=== PATIENT | male | born 1960 | race African-American/Black ===

== ENCOUNTER 2016-08-23 14:28 | Inpatient (IN) | payer MEDICAID ==
[~2016-08-23] VITALS: Ht 172.7 cm; Wt 111.6 kg
[2016-08-23 16:39] VITALS: BP 129/71
[2016-08-23] MEDS ORDERED: IBUPROFEN 600 MG TABLET PO PRN (18:45)
[2016-08-23] MEDS ORDERED: ALBUTEROL SULFATE HFA 90 MCG/PUFF 8 GM INHALER IH PRN (18:45)
[2016-08-23] MEDS ORDERED: ACETAMINOPHEN 325 MG TABLET PO PRN (18:45)
[2016-08-24 07:10] VITALS: BP 123/76
[2016-08-24 09:27] VITALS: BP 116/66
[2016-08-24] MEDS: LORazepam 2 MG TABLET PO PRN (14:19)
[2016-08-24 17:58] VITALS: BP 108/65
[2016-08-24] MEDS ORDERED: OLANZapine 5 MG TABLET PO SCH (21:00)
[2016-08-25 00:14] VITALS: BP 107/68
[2016-08-25] MEDS: ASPIRIN 81 MG EC TABLET PO SCH (06:13)
[2016-08-25] MEDS ORDERED: FLUoxetine HCL 20 MG CAPSULE PO SCH (09:00)
[2016-08-25 09:04] LABS: BASOPHILS # (AUTO) 0.03 K/uL (0.00-0.20); BASOPHILS % (AUTO) 0.5 % (0.0-2.0); EOSINOPHILS # (AUTO) 0.17 K/uL (0.00-0.70); EOSINOPHILS % (AUTO) 3.11 % (1.0-6.0); HEMATOCRIT 42.8 % (41-53); HEMOGLOBIN 14.2 g/dL (13.5-17.5); MEAN CORPUSCULAR HGB CONC 33.2 G/dL (31.0-37.0); MEAN CORPUSCULAR VOLUME 87 fL (80-100); MONOCYTES # (AUTO) 0.5 K/uL (0.1-1.0); MONOCYTES % (AUTO) 8.7 % (2.0-9.0); NEUTROPHILS # (AUTO) 2.8 K/uL (1.8-7.7); NEUTROPHILS % (AUTO) 50.7 % (40.0-70.0); PLATELET COUNT (AUTO) 223 K/uL (150-450); RED BLOOD CELL COUNT(AUTO) 4.89 MIL/uL (4.50-5.90); RED CELL DISTRIBUTION WIDTH 14.5 % (11.5-14.5); WHITE BLOOD COUNT (AUTO) 5.5 K/uL (4.5-11.0)
[2016-08-25 09:17] VITALS: BP 134/66
[2016-08-25 09:23] LABS: ALANINE AMINOTRANSFERASE 30 U/L (12-78); ANION GAP 8 mmol/L (8-16); ASPARTATE AMINOTRANSFERASE 14 U/L (15-37); BILIRUBIN,TOTAL 0.2 mg/dL (0.1-1.0); CALCIUM, TOTAL 7.7 mg/dL (8.8-10.5); CARBON DIOXIDE 25 mmol/L (22-29); CHLORIDE 106 mmol/L (98-107); CHOL/HDL RATIO 4.8 (4.2-7.3); CREATININE 0.86 mg/dL (0.60-1.30); GLOMERULAR FILTR. RATE CALC > 60 mL/min (>60); HEMOGLOBIN A1C 6.3 % (4.5-6.2); POTASSIUM 4.1 mmol/L (3.5-5.1); SODIUM SERUM 139 mmol/L (136-145); THYROID STIMULATING HORMONE 1.17 uIU/mL (0.36-3.74); TOTAL PROTEIN, SERUM 6.2 g/dL (6.4-8.2); UREA NITROGEN, BLOOD 16 mg/dL (7-18)
[2016-08-25 16:00] VITALS: BP 128/80
[2016-08-25] MEDS: LORazepam 2 MG TABLET PO PRN (17:23)
[2016-08-25] MEDS: OLANZapine 5 MG TABLET PO SCH (21:44)
[2016-08-26] MEDS: ASPIRIN 81 MG EC TABLET PO SCH (06:26)
[2016-08-26 07:20] VITALS: BP 114/70
[2016-08-26] MEDS: FLUoxetine HCL 20 MG CAPSULE PO SCH (09:00)
[2016-08-26 12:27] VITALS: BP 123/60
[2016-08-26 16:00] VITALS: BP 130/74
[2016-08-26] MEDS: OLANZapine 5 MG TABLET PO SCH (20:20)
[2016-08-27 03:35] VITALS: BP 120/80
[2016-08-27] MEDS: ASPIRIN 81 MG EC TABLET PO SCH (06:42)
[2016-08-27] MEDS: FLUoxetine HCL 20 MG CAPSULE PO SCH (08:08)
[2016-08-27 08:16] VITALS: BP 130/74
[2016-08-27 16:00] VITALS: BP 126/82
[2016-08-27] MEDS: OLANZapine 5 MG TABLET PO SCH (20:14)
[2016-08-28 04:48] VITALS: BP 112/70
[2016-08-28 06:20] VITALS: BP 115/73
[2016-08-28] MEDS: ASPIRIN 81 MG EC TABLET PO SCH (06:28)
[2016-08-28 08:18] VITALS: BP 120/76
[2016-08-28] MEDS: FLUoxetine HCL 20 MG CAPSULE PO SCH (08:47)
[2016-08-28 16:00] VITALS: BP 124/78
[2016-08-28] MEDS: LORazepam 2 MG TABLET PO PRN (18:43)
[2016-08-28] MEDS: OLANZapine 5 MG TABLET PO SCH (20:18)
[2016-08-29 00:01] VITALS: BP 122/68
[2016-08-29] MEDS: ASPIRIN 81 MG EC TABLET PO SCH (06:58)
[2016-08-29 08:24] VITALS: BP 121/81
[2016-08-29] MEDS: FLUoxetine HCL 20 MG CAPSULE PO SCH (09:09)
[2016-08-29 16:00] VITALS: BP 117/76
[2016-08-29] MEDS: OLANZapine 5 MG TABLET PO SCH (21:00)
[2016-08-30 03:32] VITALS: BP 102/60
[2016-08-30] MEDS: ASPIRIN 81 MG EC TABLET PO SCH (06:54)
[2016-08-30] MEDS: FLUoxetine HCL 20 MG CAPSULE PO SCH (08:04)
[2016-08-30] MEDS: OLANZapine 5 MG TABLET PO SCH ×2 (11:15→20:38)
[2016-08-30 14:45] VITALS: BP 129/68
[2016-08-30 16:15] VITALS: BP 118/84
[2016-08-31 06:16] VITALS: BP 127/77
[2016-08-31] MEDS: ASPIRIN 81 MG EC TABLET PO SCH (06:50)
[2016-08-31] MEDS: OLANZapine 5 MG TABLET PO SCH ×2 (08:13→20:05)
[2016-08-31] MEDS: FLUoxetine HCL 20 MG CAPSULE PO SCH (08:13)
[2016-08-31 08:36] VITALS: BP 133/68
[2016-08-31 16:08] VITALS: BP 110/62
[2016-08-31] MEDS: LORazepam 2 MG TABLET PO PRN (19:11)
[2016-09-01 00:32] VITALS: BP 122/72
[2016-09-01] MEDS: ASPIRIN 81 MG EC TABLET PO SCH (06:28)
[2016-09-01] MEDS: FLUoxetine HCL 20 MG CAPSULE PO SCH (08:09)
[2016-09-01 08:21] VITALS: BP 124/69
[2016-09-01] MEDS: LORazepam 2 MG TABLET PO PRN (09:42)
[2016-09-01] MEDS: OLANZapine 10 MG TABLET PO SCH (12:15)
[2016-09-01 16:17] VITALS: BP 131/95
[2016-09-01] MEDS: OLANZapine 5 MG TABLET PO SCH (20:13)
[2016-09-02] MEDS: LORazepam 2 MG TABLET PO PRN ×2 (00:05→18:43)
[2016-09-02 00:06] VITALS: BP 119/89
[2016-09-02] MEDS: ASPIRIN 81 MG EC TABLET PO SCH (06:14)
[2016-09-02] MEDS: FLUoxetine HCL 20 MG CAPSULE PO SCH (08:36)
[2016-09-02] MEDS: OLANZapine 10 MG TABLET PO SCH (08:37)
[2016-09-02 09:11] VITALS: BP 126/71
[2016-09-02 16:16] VITALS: BP 111/78
[2016-09-02] MEDS: OLANZapine 5 MG TABLET PO SCH (20:55)
[2016-09-03 00:01] VITALS: BP 104/60
[2016-09-03] MEDS: ASPIRIN 81 MG EC TABLET PO SCH (06:24)
[2016-09-03] MEDS: OLANZapine 10 MG TABLET PO SCH (08:24)
[2016-09-03] MEDS: FLUoxetine HCL 20 MG CAPSULE PO SCH (08:24)
[2016-09-03 08:41] VITALS: BP 121/77
[2016-09-03] MEDS: PANTOPRAZOLE SODIUM 40 MG DR TABLET PO SCH (10:24)
[2016-09-03] MEDS: LORazepam 2 MG TABLET PO PRN (14:37)
[2016-09-03 16:17] VITALS: BP 117/65
[2016-09-03] MEDS: OLANZapine 5 MG TABLET PO SCH (20:40)
[2016-09-04 00:15] VITALS: BP 100/63
[2016-09-04] MEDS: ASPIRIN 81 MG EC TABLET PO SCH (06:37)
[2016-09-04 08:34] VITALS: BP 118/68
[2016-09-04] MEDS: OLANZapine 10 MG TABLET PO SCH (09:55)
[2016-09-04] MEDS: FLUoxetine HCL 20 MG CAPSULE PO SCH (09:55)
[2016-09-04] MEDS: PANTOPRAZOLE SODIUM 40 MG DR TABLET PO SCH (09:55)
[2016-09-04 16:00] VITALS: BP 119/76
[2016-09-04] MEDS: LORazepam 2 MG TABLET PO PRN (17:11)
[2016-09-04] MEDS: OLANZapine 5 MG TABLET PO SCH (20:47)
[2016-09-04] MEDS: ZOLPIDEM TARTRATE 10 MG TABLET PO PRN (20:47)
[2016-09-04] MEDS ORDERED: ALBUTEROL SULFATE HFA 90 MCG/PUFF 8 GM INHALER IH PRN (22:00)
[2016-09-04] MEDS ORDERED: DiphenhydrAMINE HCL 25 MG CAPSULE PO PRN (22:00)
[2016-09-05 02:47] VITALS: BP 125/90
[2016-09-05] MEDS: ASPIRIN 81 MG EC TABLET PO SCH (06:36)
[2016-09-05 08:42] VITALS: BP 120/80
[2016-09-05] MEDS: PredniSONE 20 MG TABLET PO SCH (09:05)
[2016-09-05] MEDS: PANTOPRAZOLE SODIUM 40 MG DR TABLET PO SCH (09:05)
[2016-09-05] MEDS: OLANZapine 10 MG TABLET PO SCH (09:06)
[2016-09-05] MEDS: FLUoxetine HCL 20 MG CAPSULE PO SCH (09:06)
[2016-09-05] MEDS: LORazepam 2 MG TABLET PO PRN ×2 (11:10→17:09)
[2016-09-05] MEDS ORDERED: HALOPERIDOL 10 MG TABLET PO PRN (16:30)
[2016-09-05] MEDS ORDERED: HALOPERIDOL 5 MG TABLET PO PRN (16:30)
[2016-09-05 16:33] VITALS: BP 140/82
[2016-09-05] MEDS: ZOLPIDEM TARTRATE 10 MG TABLET PO PRN (20:22)
[2016-09-05] MEDS ORDERED: OLANZapine 10 MG TABLET PO SCH (21:00)
[2016-09-06 03:55] VITALS: BP 135/81
[2016-09-06] MEDS: ASPIRIN 81 MG EC TABLET PO SCH (06:28)
[2016-09-06 08:24] VITALS: BP 104/66
[2016-09-06] MEDS: PredniSONE 20 MG TABLET PO SCH (08:55)
[2016-09-06] MEDS: FLUoxetine HCL 20 MG CAPSULE PO SCH (08:55)
[2016-09-06] MEDS: OLANZapine 10 MG TABLET PO SCH (08:55)
[2016-09-06] MEDS: PANTOPRAZOLE SODIUM 40 MG DR TABLET PO SCH (08:55)
[2016-09-06] MEDS ORDERED: OLAN10TA3 PO (12:46)
[2016-09-06] MEDS ORDERED: FLUO-191 PO (12:46)
[2016-09-06] MEDS ORDERED: PANT40TA25 PO (12:48)
[2016-09-06] MEDS ORDERED: PRED20 PO (12:48)
[2016-09-06] MEDS ORDERED: ASPI-1093 PO (12:48)
== END 2016-09-06 13:15 | disposition home or self-care (01) | DRG 750 ==
LOC: B2S 16:11 → EDSTATUS 16:20 → B2S 08-25 11:57
PROVIDERS: ADMIT Psychiatry & Neurology Psychiatry; ATTEND Psychiatry & Neurology Psychiatry
DX: F25.0 Schizoaffective disorder, bipolar type (principal); R45.851 Suicidal ideations; F60.3 Borderline personality disorder; M54.2 Cervicalgia; J45.909 Unspecified asthma, uncomplicated; Z72.0 Tobacco use; Z86.73 Personal history of transient ischemic attack (TIA), and cerebral infarction without residual deficits
CPT/HCPCS: 83036; 84439; 84443; J3535

== ENCOUNTER 2017-04-21 14:56 | Emergency (ER) | payer MEDICAID, OTHER ==
[~2017-04-21] VITALS: Ht 175.3 cm; Wt 95.5 kg
[~2017-04-21 14:56] MED LIST: ASPI-1182 PO; FLUO-191 PO; OLAN10TA3 PO; PANT40TA25 PO; PRED20 PO
[2017-04-21] MEDS ORDERED: QUET100T PO (15:05)
[2017-04-21 16:36] LABS: BASOPHILS % (AUTO) 1.3 % (0.0-2.0); EOSINOPHILS % (AUTO) 3.1 % (1.0-6.0); HEMOGLOBIN 17.2 g/dL (13.5-17.5); LYMPHOCYTES # (AUTO) 2.4 K/uL (1.0-4.8); LYMPHOCYTES % (AUTO) 35.6 % (22.0-44.0); MEAN CORPUSCULAR HEMOGLOBIN 29.5 pg (26.0-34.0); MEAN CORPUSCULAR HGB CONC 33.7 G/dL (31.0-37.0); MEAN CORPUSCULAR VOLUME 87 fL (80-100); MONOCYTES # (AUTO) 1.1 K/uL (0.1-1.0); MONOCYTES % (AUTO) 16.5 % (2.0-9.0); NEUTROPHILS # (AUTO) 2.9 K/uL (1.8-7.7); NEUTROPHILS % (AUTO) 43.5 % (40.0-70.0); PLATELET COUNT (AUTO) 281 K/uL (150-450); RED BLOOD CELL COUNT(AUTO) 5.84 MIL/uL (4.50-5.90); RED CELL DISTRIBUTION WIDTH 14.5 % (11.5-14.5)
[2017-04-21 16:50] LABS: ANION GAP 7 mmol/L (8-16); CALCIUM, TOTAL 9.3 mg/dL (8.8-10.5); CARBON DIOXIDE 30 mmol/L (22-29); CHLORIDE 98 mmol/L (98-107); CREATININE 1.03 mg/dL (0.60-1.30); GLOMERULAR FILTR. RATE CALC > 60 mL/min (>60); GLUCOSE,RANDOM 124 mg/dL (70-110); POTASSIUM 3.2 mmol/L (3.5-5.1); SODIUM SERUM 135 mmol/L (136-145); UREA NITROGEN, BLOOD 13 mg/dL (7-18)
[2017-04-21 16:57] LABS: ALANINE AMINOTRANSFERASE 61 U/L (12-78); ALBUMIN 3.5 g/dL (3.4-5.0); ALKALINE PHOSPHATASE 80 U/L (46-116); ASPARTATE AMINOTRANSFERASE 33 U/L (15-37); BILIRUBIN,TOTAL 0.2 mg/dL (0.1-1.0); TOTAL PROTEIN, SERUM 7.5 g/dL (6.4-8.2)
[2017-04-21 17:12] LABS: AMPHET/METH SCREEN,URINE NEGATIVE (NEGATIVE); BARBITURATE SCREEN, URINE NEGATIVE (NEGATIVE); BENZODIAZEPINES SCREEN,URINE NEGATIVE (NEGATIVE); CANNABINOID SCREEN,URINE NEGATIVE (NEGATIVE); COCAINE SCREEN,URINE NEGATIVE (NEGATIVE); METHADONE SCREEN, URINE NEGATIVE (NEGATIVE); OPIATE SCREEN,URINE NEGATIVE (NEGATIVE)
[2017-04-21 17:22] LABS: PHENCYCLIDINE SCREEN,URINE NEGATIVE (NEGATIVE)
[2017-04-21] MEDS ORDERED: IBUPROFEN 800 MG TABLET PO ONE (17:45)
[2017-04-21] MEDS ORDERED: LIDOCAINE HCL 5% TRANSDERMAL PATCH TD ONE (17:45)
[2017-04-21 17:59] LABS: APPEARANCE,URINE CLEAR (CLEAR); BILIRUBIN,URINE NEGATIVE (NEGATIVE); GLUCOSE, URINE (UA) NEGATIVE (NEGATIVE); KETONES,URINE NEGATIVE (NEGATIVE); LEUKOCYTE ESTERASE ,URINE NEGATIVE (NEGATIVE); NITRATE,URINE NEGATIVE (NEGATIVE); OCCULT BLOOD,URINE NEGATIVE (NEGATIVE); PROTEIN,URINE NEGATIVE (NEGATIVE); UROBILINOGEN,URINE 0.2 mg/dL (<=1.0)
[2017-04-21 19:48] VITALS: BP 111/68
== END 2017-04-21 19:50 | disposition home or self-care (01) ==
LOC: EMS 14:57
DX: M54.5 Low back pain (principal); J44.9 Chronic obstructive pulmonary disease, unspecified; I10 Essential (primary) hypertension; F15.10 Other stimulant abuse, uncomplicated
CPT/HCPCS: 72110; 99285

== ENCOUNTER 2017-05-07 10:11 | Emergency (ER) | payer OTHER ==
[~2017-05-07] VITALS: Ht 172.7 cm; Wt 115.0 kg
[~2017-05-07 10:11] MED LIST changes: -ASPI-1182 PO; -OLAN10TA3 PO; -PANT40TA25 PO; -PRED20 PO; +QUET100T PO
[2017-05-07] MEDS ORDERED: IPRATROPIUM BROMIDE 0.5 MG/2.5 ML NEB SOLUTION NEB ONE ×2 (12:30→14:30)
[2017-05-07] MEDS ORDERED: ALBUTEROL SULFATE 2.5 MG/0.5 ML NEB SOLUTION NEB ONE ×3 (12:30→14:30)
[2017-05-07] MEDS ORDERED: PredniSONE 20 MG TABLET PO ONE (12:30)
[2017-05-07] MEDS ORDERED: KETOROLAC TROMETHAMINE 60 MG/2 ML VIAL IM ONE (13:15)
[2017-05-07 14:35] VITALS: BP 116/66
== END 2017-05-07 15:07 | disposition home or self-care (01) ==
LOC: EMS 10:14
DX: J44.9 Chronic obstructive pulmonary disease, unspecified (principal); I10 Essential (primary) hypertension; Z86.73 Personal history of transient ischemic attack (TIA), and cerebral infarction without residual deficits
CPT/HCPCS: 71046; 94640; 96372; 99284; J1885; J7512; J7613

== ENCOUNTER 2017-05-24 11:50 | Emergency (ER) | payer OTHER ==
[~2017-05-24] VITALS: Ht 172.7 cm; Wt 72.2 kg
[2017-05-24 12:30] VITALS: BP 135/104
[2017-05-24 13:36] LABS: BASOPHILS % (AUTO) 0.3 % (0.0-2.0); EOSINOPHILS % (AUTO) 1.5 % (1.0-6.0); HEMATOCRIT 42.4 % (41-53); HEMOGLOBIN 14.7 g/dL (13.5-17.5); LYMPHOCYTES # (AUTO) 1.8 K/uL (1.0-4.8); LYMPHOCYTES % (AUTO) 17.3 % (22.0-44.0); MEAN CORPUSCULAR HEMOGLOBIN 29.7 pg (26.0-34.0); MEAN CORPUSCULAR HGB CONC 34.6 G/dL (31.0-37.0); MEAN CORPUSCULAR VOLUME 86 fL (80-100); MONOCYTES # (AUTO) 0.7 K/uL (0.1-1.0); MONOCYTES % (AUTO) 7.2 % (2.0-9.0); NEUTROPHILS # (AUTO) 7.4 K/uL (1.8-7.7); NEUTROPHILS % (AUTO) 73.7 % (40.0-70.0); PLATELET COUNT (AUTO) 245 K/uL (150-450); RED BLOOD CELL COUNT(AUTO) 4.93 MIL/uL (4.50-5.90)
[2017-05-24 13:38] LABS: AMPHET/METH SCREEN,URINE NEGATIVE (NEGATIVE); BARBITURATE SCREEN, URINE NEGATIVE (NEGATIVE); BENZODIAZEPINES SCREEN,URINE NEGATIVE (NEGATIVE); CANNABINOID SCREEN,URINE NEGATIVE (NEGATIVE); COCAINE SCREEN,URINE NEGATIVE (NEGATIVE); METHADONE SCREEN, URINE NEGATIVE (NEGATIVE); OPIATE SCREEN,URINE POSITIVE (NEGATIVE)
[2017-05-24 13:41] LABS: PHENCYCLIDINE SCREEN,URINE NEGATIVE (NEGATIVE)
[2017-05-24 13:58] LABS: ALANINE AMINOTRANSFERASE 55 U/L (12-78); ALBUMIN 3.2 g/dL (3.4-5.0); ALKALINE PHOSPHATASE 99 U/L (46-116); ASPARTATE AMINOTRANSFERASE 19 U/L (15-37); BILIRUBIN,TOTAL 0.2 mg/dL (0.1-1.0); CALCIUM, TOTAL 8.3 mg/dL (8.8-10.5); CHLORIDE 101 mmol/L (98-107); CREATININE 1.14 mg/dL (0.60-1.30); GLOMERULAR FILTR. RATE CALC > 60 mL/min (>60); GLUCOSE,RANDOM 197 mg/dL (70-110); SODIUM SERUM 138 mmol/L (136-145); TOTAL PROTEIN, SERUM 6.8 g/dL (6.4-8.2); UREA NITROGEN, BLOOD 16 mg/dL (7-18)
[2017-05-24 14:02] LABS: ANION GAP 10 mmol/L (8-16); CARBON DIOXIDE 27 mmol/L (22-29)
== END 2017-05-24 15:00 | disposition home or self-care (01) ==
LOC: EMS 11:53
DX: F25.9 Schizoaffective disorder, unspecified (principal); I10 Essential (primary) hypertension; J44.9 Chronic obstructive pulmonary disease, unspecified; F15.10 Other stimulant abuse, uncomplicated
CPT/HCPCS: 36415; 80053; 80307; 85025; 99284; G0480

== ENCOUNTER 2017-05-26 15:18 | Inpatient (IN) | payer MEDICAID, OTHER ==
[~2017-05-26] VITALS: Ht 172.7 cm; Wt 118.2 kg
[2017-05-26 16:30] LABS: BASOPHILS % (AUTO) 0.4 % (0.0-2.0); EOSINOPHILS % (AUTO) 2.5 % (1.0-6.0); HEMATOCRIT 44.3 % (41-53); LYMPHOCYTES # (AUTO) 2.9 K/uL (1.0-4.8); MEAN CORPUSCULAR HEMOGLOBIN 29.1 pg (26.0-34.0); MEAN CORPUSCULAR VOLUME 86 fL (80-100); MONOCYTES # (AUTO) 0.7 K/uL (0.1-1.0); MONOCYTES % (AUTO) 7.5 % (2.0-9.0); NEUTROPHILS % (AUTO) 60.6 % (40.0-70.0); PLATELET COUNT (AUTO) 242 K/uL (150-450); RED BLOOD CELL COUNT(AUTO) 5.17 MIL/uL (4.50-5.90)
[2017-05-26 16:39] LABS: ANION GAP 9 mmol/L (8-16); CALCIUM, TOTAL 8.3 mg/dL (8.8-10.5); CARBON DIOXIDE 27 mmol/L (22-29); CHLORIDE 101 mmol/L (98-107); CREATININE 1.13 mg/dL (0.60-1.30); GLOMERULAR FILTR. RATE CALC > 60 mL/min (>60); GLUCOSE,RANDOM 145 mg/dL (70-110); SODIUM SERUM 137 mmol/L (136-145); UREA NITROGEN, BLOOD 18 mg/dL (7-18)
[2017-05-26 16:43] LABS: ALANINE AMINOTRANSFERASE 53 U/L (12-78); ALBUMIN 3.3 g/dL (3.4-5.0); ALKALINE PHOSPHATASE 81 U/L (46-116); ASPARTATE AMINOTRANSFERASE 18 U/L (15-37); BILIRUBIN,TOTAL 0.3 mg/dL (0.1-1.0); TOTAL PROTEIN, SERUM 6.9 g/dL (6.4-8.2)
[2017-05-26] MEDS ORDERED: ZOLPIDEM TARTRATE 10 MG TABLET PO PRN (17:15)
[2017-05-26] MEDS ORDERED: LORazepam 2 MG TABLET PO ONE (17:15)
[2017-05-26] MEDS ORDERED: HALOPERIDOL 5 MG TABLET PO ONE (17:15)
[2017-05-26 18:00] LABS: AMPHET/METH SCREEN,URINE NEGATIVE (NEGATIVE); BARBITURATE SCREEN, URINE NEGATIVE (NEGATIVE); BENZODIAZEPINES SCREEN,URINE NEGATIVE (NEGATIVE); CANNABINOID SCREEN,URINE NEGATIVE (NEGATIVE); COCAINE SCREEN,URINE NEGATIVE (NEGATIVE); METHADONE SCREEN, URINE NEGATIVE (NEGATIVE); OPIATE SCREEN,URINE POSITIVE (NEGATIVE); PHENCYCLIDINE SCREEN,URINE NEGATIVE (NEGATIVE)
[2017-05-26] MEDS: HALOPERIDOL 5 MG TABLET PO PRN (22:14)
[2017-05-26] MEDS: LORazepam 2 MG TABLET PO PRN (22:14)
[2017-05-27] MEDS: LORazepam 2 MG TABLET PO PRN (08:30)
[2017-05-27] MEDS: HALOPERIDOL 5 MG TABLET PO PRN (08:31)
[2017-05-27 08:39] LABS: CHOL/HDL RATIO 3.7 (4.2-7.3)
[2017-05-27 21:00] VITALS: BP 137/94
[2017-05-27] MEDS ORDERED: IBUPROFEN 600 MG TABLET PO PRN (21:45)
[2017-05-27] MEDS ORDERED: ACETAMINOPHEN 325 MG TABLET PO PRN (21:45)
[2017-05-27 22:18] VITALS: BP 137/94
[2017-05-28] MEDS: LORazepam 2 MG TABLET PO PRN (01:09)
[2017-05-28 01:55] VITALS: BP 143/94
[2017-05-28] MEDS: ALBUTEROL SULFATE HFA 90 MCG/PUFF 8 GM INHALER IH PRN (05:39)
[2017-05-28] MEDS: ASPIRIN 81 MG EC TABLET PO SCH (07:06)
[2017-05-28 08:09] VITALS: BP 150/83
[2017-05-28] MEDS: HALOPERIDOL 5 MG TABLET PO PRN (10:44)
[2017-05-28] MEDS ORDERED: PROMETHAZINE HCL 25 MG TABLET PO PRN (12:00)
[2017-05-28] MEDS ORDERED: LOPERAMIDE HCL 2 MG CAPSULE PO PRN (12:00)
[2017-05-28] MEDS ORDERED: ACETAMINOPHEN 325 MG TABLET PO PRN (12:00)
[2017-05-28] MEDS ORDERED: TUBERCULIN, PURIFIED PROTEIN DERIVATIVE 5 TU/0.1 ML SYG ID ONE (12:00)
[2017-05-28] MEDS ORDERED: HydrOXYzine PAMOATE 50 MG CAPSULE PO PRN (12:00)
[2017-05-28] MEDS ORDERED: OLANZapine 5 MG RAPDIS TABLET PO PRN (12:00)
[2017-05-28] MEDS ORDERED: MAGNESIUM HYDROXIDE SUSPENSION 30 ML UDCUP PO PRN (12:00)
[2017-05-28] MEDS ORDERED: MAG HYDROX/AL HYDROX/SIMETH ES 30 ML SUSPENSION UDCUP PO PRN (12:00)
[2017-05-28 16:00] VITALS: BP 146/93
[2017-05-28] MEDS: ALBUTEROL SULFATE 2.5 MG/0.5 ML NEB SOLUTION NEB PRN (16:44)
[2017-05-28] MEDS: IPRATROPIUM BROMIDE 0.5 MG/2.5 ML NEB SOLUTION NEB PRN (16:44)
[2017-05-28] MEDS: THIAMINE HCL 100 MG TABLET PO SCH (16:55)
[2017-05-28] MEDS ORDERED: DOXYCYCLINE 100 MG CAPSULE PO SCH (17:00)
[2017-05-28] MEDS: GuaiFENesin/D-METHORPHAN [SUGAR-FREE] 200-20MG/10 ML SYRUP UDCUP PO PRN (20:18)
[2017-05-28] MEDS ORDERED: OLANZapine 5 MG RAPDIS TABLET PO SCH (21:00)
[2017-05-29] MEDS: ASPIRIN 81 MG EC TABLET PO SCH (06:58)
[2017-05-29 07:36] LABS: BASOPHILS % (AUTO) 0.6 % (0.0-2.0); EOSINOPHILS % (AUTO) 1.9 % (1.0-6.0); HEMOGLOBIN 17.3 g/dL (13.5-17.5); LYMPHOCYTES # (AUTO) 2.4 K/uL (1.0-4.8); LYMPHOCYTES % (AUTO) 25.3 % (22.0-44.0); MEAN CORPUSCULAR HGB CONC 35.3 G/dL (31.0-37.0); MEAN CORPUSCULAR VOLUME 85 fL (80-100); MONOCYTES # (AUTO) 0.6 K/uL (0.1-1.0); MONOCYTES % (AUTO) 6.8 % (2.0-9.0); NEUTROPHILS # (AUTO) 6.2 K/uL (1.8-7.7); NEUTROPHILS % (AUTO) 65.4 % (40.0-70.0); PLATELET COUNT (AUTO) 222 K/uL (150-450); RED BLOOD CELL COUNT(AUTO) 5.76 MIL/uL (4.50-5.90); RED CELL DISTRIBUTION WIDTH 14.8 % (11.5-14.5)
[2017-05-29 08:10] VITALS: BP 151/114
[2017-05-29 08:10] LABS: CHOL/HDL RATIO 4.3 (4.2-7.3); FREE T4 (FREE THYROXINE) 0.91 ng/dL (0.76-1.46); THYROID STIMULATING HORMONE 1.73 uIU/mL (0.36-3.74)
[2017-05-29] MEDS ORDERED: AmLODIPine BESYLATE 5 MG TABLET PO SCH (08:15)
[2017-05-29] MEDS ORDERED: CloNIDine HCL 0.1 MG TABLET PO PRN (08:15)
[2017-05-29] MEDS: THIAMINE HCL 100 MG TABLET PO SCH (08:50)
[2017-05-29] MEDS ORDERED: NALTREXONE HCL 50 MG TABLET PO SCH (09:00)
[2017-05-29] MEDS ORDERED: FOLIC ACID 1 MG TABLET PO SCH (09:00)
[2017-05-29] MEDS ORDERED: PredniSONE 20 MG TABLET PO SCH (09:00)
[2017-05-29] MEDS ORDERED: LEVOFLOXACIN 500 MG TABLET PO SCH (09:00)
[2017-05-29] MEDS ORDERED: MULTIVITAMINS WITH MINERALS, THERAPEUTIC TABLET PO SCH (09:00)
[2017-05-29] MEDS ORDERED: FLUoxetine HCL 20 MG CAPSULE PO SCH (09:00)
[2017-05-29 09:40] VITALS: BP 125/80
[2017-05-29] MEDS: ALBUTEROL SULFATE HFA 90 MCG/PUFF 8 GM INHALER IH PRN (10:28)
[2017-05-29] MEDS: IPRATROPIUM BROMIDE 0.5 MG/2.5 ML NEB SOLUTION NEB PRN (11:00)
[2017-05-29] MEDS: ALBUTEROL SULFATE 2.5 MG/0.5 ML NEB SOLUTION NEB PRN (11:00)
[2017-05-29] MEDS ORDERED: NALT50TA PO (12:13)
[2017-05-29] MEDS ORDERED: OLAN10TA22 PO (12:13)
[2017-05-29] MEDS ORDERED: FLUO-191 PO (12:13)
[2017-05-29] MEDS ORDERED: NALT50TA6 PO (13:00)
[2017-05-29] MEDS ORDERED: OLAN10TA3 PO (13:01)
[2017-05-29] MEDS ORDERED: AMLO-511 PO (13:03)
[2017-05-29] MEDS ORDERED: ASPI-1182 PO (13:03)
[2017-05-29] MEDS ORDERED: LEVO500 PO (13:04)
[2017-05-29] MEDS ORDERED: PRED20 PO (13:04)
[2017-05-29] MEDS: GuaiFENesin/D-METHORPHAN [SUGAR-FREE] 200-20MG/10 ML SYRUP UDCUP PO PRN (13:05)
[2017-05-29] MEDS ORDERED: MULT-723 PO (13:08)
[2017-05-29] MEDS ORDERED: OLANZapine 10 MG RAPDIS TABLET PO SCH (21:00)
== END 2017-05-29 14:30 | disposition home or self-care (01) | DRG 750 ==
LOC: EMS 15:19 → 3EC 05-27 19:07
PROVIDERS: ADMIT Psychiatry & Neurology Child & Adolescent Psychiatry; ATTEND Psychiatry & Neurology Psychiatry
DX: F25.0 Schizoaffective disorder, bipolar type (principal); I69.354 Hemiplegia and hemiparesis following cerebral infarction affecting left non-dominant side; R45.851 Suicidal ideations; F32.9 Major depressive disorder, single episode, unspecified; F15.10 Other stimulant abuse, uncomplicated; F29 Unspecified psychosis not due to a substance or known physiological condition; J44.9 Chronic obstructive pulmonary disease, unspecified; F17.200 Nicotine dependence, unspecified, uncomplicated; E66.9 Obesity, unspecified; G89.29 Other chronic pain; M54.2 Cervicalgia; I10 Essential (primary) hypertension; E87.6 Hypokalemia; R45.850 Homicidal ideations; M54.9 Dorsalgia, unspecified; Z68.39 Body mass index [BMI] 39.0-39.9, adult; Z91.19 Patient's noncompliance with other medical treatment and regimen; Z98.1 Arthrodesis status; Z81.8 Family history of other mental and behavioral disorders
CPT/HCPCS: 84439; 84443; 86592; 94640; G0480; J3535

== ENCOUNTER 2017-06-05 16:46 | Emergency (ER) | payer MEDICAID, OTHER ==
[~2017-06-05] VITALS: Ht 182.9 cm; Wt 118.2 kg
[~2017-06-05 16:46] MED LIST changes: +AMLO-511 PO; +ASPI-1182 PO; +LEVO500 PO; +MULT-723 PO; +NALT50TA PO; +NALT50TA6 PO; +OLAN10TA22 PO; +OLAN10TA3 PO; +PRED20 PO; -QUET100T PO
[2017-06-05] MEDS: KETOROLAC TROMETHAMINE 60 MG/2 ML VIAL IM ONE (17:59)
[2017-06-05] MEDS: CYCLOBENZAPRINE HCL 10 MG TABLET PO ONE (17:59)
[2017-06-05] MEDS: HYDROCODONE/ACETAMINOPHEN 5-325 MG TABLET PO ONE (18:46)
[2017-06-05 19:26] LABS: BASOPHILS % (AUTO) 0.6 % (0.0-2.0); EOSINOPHILS % (AUTO) 0.4 % (1.0-6.0); HEMATOCRIT 43.9 % (41-53); HEMOGLOBIN 14.8 g/dL (13.5-17.5); LYMPHOCYTES % (AUTO) 16.3 % (22.0-44.0); MEAN CORPUSCULAR HEMOGLOBIN 29.2 pg (26.0-34.0); MEAN CORPUSCULAR HGB CONC 33.8 G/dL (31.0-37.0); MEAN CORPUSCULAR VOLUME 86 fL (80-100); MONOCYTES # (AUTO) 0.9 K/uL (0.1-1.0); MONOCYTES % (AUTO) 6.9 % (2.0-9.0); NEUTROPHILS # (AUTO) 9.5 K/uL (1.8-7.7); NEUTROPHILS % (AUTO) 75.8 % (40.0-70.0); PLATELET COUNT (AUTO) 258 K/uL (150-450); RED BLOOD CELL COUNT(AUTO) 5.08 MIL/uL (4.50-5.90); RED CELL DISTRIBUTION WIDTH 15.1 % (11.5-14.5)
[2017-06-05 20:33] VITALS: BP 137/78
== END 2017-06-05 20:41 | disposition home or self-care (01) ==
LOC: EMS 16:55
DX: M47.892 Other spondylosis, cervical region (principal); M54.12 Radiculopathy, cervical region; M79.602 Pain in left arm; R53.1 Weakness; J44.9 Chronic obstructive pulmonary disease, unspecified; I10 Essential (primary) hypertension; R00.1 Bradycardia, unspecified; Z79.82 Long term (current) use of aspirin; Z86.73 Personal history of transient ischemic attack (TIA), and cerebral infarction without residual deficits
CPT/HCPCS: 36415; 70450; 72125; 85025; 85379; 96372; 99285; J1885

== ENCOUNTER 2020-08-16 18:55 | Emergency (ER) | payer MEDICAID, OTHER ==
[~2020-08-16] VITALS: Ht 172.7 cm; Wt 109.1 kg
[~2020-08-16 18:55] MED LIST changes: +AMLO-257 PO; -AMLO-511 PO; -ASPI-1182 PO; +ASPI-1444 PO; -LEVO500 PO; -NALT50TA6 PO; -OLAN10TA3 PO
[2020-08-16] MEDS ORDERED: PredniSONE 20 MG TABLET PO ONE (23:15)
[2020-08-16] MEDS ORDERED: DiphenhydrAMINE HCL 25 MG CAPSULE PO ONE (23:15)
[2020-08-16] MEDS ORDERED: PERMETHRIN 5% 60 GM CREAM TP ONE (23:15)
[2020-08-16 23:25] VITALS: BP 132/69
== END 2020-08-17 00:05 | disposition home or self-care (01) ==
LOC: EMS 19:02
DX: L30.9 Dermatitis, unspecified (principal); J44.9 Chronic obstructive pulmonary disease, unspecified; I10 Essential (primary) hypertension; Z86.73 Personal history of transient ischemic attack (TIA), and cerebral infarction without residual deficits
CPT/HCPCS: 99284; J7512

== ENCOUNTER 2021-12-12 23:19 | Inpatient (IN) | payer MEDICAID ==
[~2021-12-12] VITALS: Ht 170.2 cm; Wt 105.3 kg
[2021-12-13 01:51] LABS: GLUCOMETER DEV NAME(LOC) ERT.5; GLUCOSE,POINT OF CARE 114 MG/DL (70-110)
[2021-12-13 02:56] LABS: COVID AG,FIA SOURCE NASAL SWAB
[2021-12-13 03:53] LABS: BASOPHILS % (AUTO) 0.3 % (0.0-2.0); EOSINOPHILS % (AUTO) 3.6 % (1.0-6.0); HEMATOCRIT 38.3 % (41-53); HEMOGLOBIN 12.8 g/dL (13.5-17.5); LYMPHOCYTES # (AUTO) 2.3 K/uL (1.0-4.8); LYMPHOCYTES % (AUTO) 35.8 % (22.0-44.0); MEAN CORPUSCULAR HEMOGLOBIN 29.8 pg (26.0-34.0); MEAN CORPUSCULAR HGB CONC 33.5 G/dL (31.0-37.0); MEAN CORPUSCULAR VOLUME 89 fL (80-100); MONOCYTES # (AUTO) 0.6 K/uL (0.1-1.0); MONOCYTES % (AUTO) 8.7 % (2.0-9.0); NEUTROPHILS # (AUTO) 3.4 K/uL (1.8-7.7); NEUTROPHILS % (AUTO) 51.6 % (40.0-70.0); PLATELET COUNT (AUTO) 166 K/uL (150-450); RED BLOOD CELL COUNT(AUTO) 4.32 MIL/uL (4.50-5.90); RED CELL DISTRIBUTION WIDTH 14.4 % (11.5-14.5)
[2021-12-13 04:10] LABS: ANION GAP 5 mmol/L (8-16); CALCIUM, TOTAL 8.1 mg/dL (8.8-10.5); CARBON DIOXIDE 29 mmol/L (22-29); CHLORIDE 105 mmol/L (98-107); CREATININE 0.96 mg/dL (0.60-1.30); GLUCOSE,RANDOM 146 mg/dL (70-110); POTASSIUM 3.6 mmol/L (3.5-5.1); SODIUM SERUM 139 mmol/L (136-145); UREA NITROGEN, BLOOD 13 mg/dL (7-18)
[2021-12-13 04:15] LABS: GLOMERULAR FILTR. RATE CALC > 60 mL/min (>60)
[2021-12-13 04:16] LABS: ALANINE AMINOTRANSFERASE 30 U/L (12-78); ALKALINE PHOSPHATASE 80 U/L (46-116); ASPARTATE AMINOTRANSFERASE 20 U/L (15-37); BILIRUBIN,TOTAL 0.5 mg/dL (0.1-1.0); TOTAL PROTEIN, SERUM 5.8 g/dL (6.4-8.2)
[2021-12-13 06:20] LABS: APPEARANCE,URINE CLEAR (CLEAR); BILIRUBIN,URINE NEGATIVE (NEGATIVE); GLUCOSE, URINE (UA) NEGATIVE (NEGATIVE); KETONES,URINE NEGATIVE (NEGATIVE); LEUKOCYTE ESTERASE ,URINE SMALL (NEGATIVE); NITRATE,URINE NEGATIVE (NEGATIVE); OCCULT BLOOD,URINE NEGATIVE (NEGATIVE); PH,URINE 6.5 (5.0-8.0); PROTEIN,URINE TRACE mg/dL (NEGATIVE); SPECIFIC GRAVITIY, URINE 1.024 (1.003-1.030); UROBILINOGEN,URINE <=1.0 mg/dL (<=1.0)
[2021-12-13 06:25] LABS: AMPHET/METH SCREEN,URINE POSITIVE (NEGATIVE); BARBITURATE SCREEN, URINE NEGATIVE (NEGATIVE); BENZODIAZEPINES SCREEN,URINE NEGATIVE (NEGATIVE); CANNABINOID SCREEN,URINE NEGATIVE (NEGATIVE); COCAINE SCREEN,URINE NEGATIVE (NEGATIVE); METHADONE SCREEN, URINE NEGATIVE (NEGATIVE); OPIATE SCREEN,URINE NEGATIVE (NEGATIVE); PHENCYCLIDINE SCREEN,URINE NEGATIVE (NEGATIVE)
[2021-12-13 07:00] LABS: RBC,URINE 0-2 /HPF (0-2)
[2021-12-13 07:01] LABS: AMORPHOUS SEDIMENT,UR Few /LPF (None Seen); BACTERIA,URINE None Seen /HPF (None Seen); SQUAMOUS EPITHELIAL CELL,UR Few /LPF (None Seen)
[2021-12-13] MEDS: HALOPERIDOL 5 MG TABLET PO PRN ×2 (13:00→23:11)
[2021-12-13 16:34] VITALS: BP 161/83
[2021-12-13] MEDS ORDERED: PNEUMOCOCCAL VACCINE POLYVALENT 0.5 ML VIAL [PPSV23] IM. ONE (17:30)
[2021-12-13] MEDS: AmLODIPine BESYLATE 5 MG TABLET PO SCH (17:31)
[2021-12-13] MEDS: ZOLPIDEM TARTRATE 10 MG TABLET PO PRN (23:11)
[2021-12-14] MEDS ORDERED: CloNIDine HCL 0.1 MG TABLET PO PRN (06:30)
[2021-12-14] MEDS ORDERED: ONDANSETRON HCL 4 MG TABLET PO PRN (06:30)
[2021-12-14] MEDS ORDERED: LOPERAMIDE HCL 2 MG CAPSULE PO PRN (06:30)
[2021-12-14] MEDS ORDERED: NICOTINE 14 MG/24 HOUR PATCH TD PRN (06:30)
[2021-12-14] MEDS ORDERED: MAGNESIUM HYDROXIDE SUSPENSION 30 ML UDCUP PO PRN (06:30)
[2021-12-14] MEDS ORDERED: DOCUSATE SODIUM 100 MG CAPSULE PO PRN (06:30)
[2021-12-14] MEDS ORDERED: ALBUTEROL SULFATE HFA 90 MCG/PUFF 8 GM INHALER IH PRN (06:30)
[2021-12-14] MEDS ORDERED: PETROLATUM,WHITE 28 GM JELLY TP PRN (06:30)
[2021-12-14] MEDS ORDERED: MAG HYDROX/AL HYDROX/SIMETH ES 30 ML SUSPENSION UDCUP PO PRN (06:30)
[2021-12-14] MEDS ORDERED: ACETAMINOPHEN 325 MG TABLET PO PRN (06:30)
[2021-12-14] MEDS ORDERED: GuaiFENesin/D-METHORPHAN [SUGAR-FREE] 200-20MG/10 ML SYRUP UDCUP PO PRN (06:30)
[2021-12-14] MEDS: AmLODIPine BESYLATE 5 MG TABLET PO SCH (08:36)
[2021-12-14 08:48] VITALS: BP 115/71
[2021-12-14] MEDS: FLUoxetine HCL 20 MG CAPSULE PO SCH (11:39)
[2021-12-14] MEDS: HALOPERIDOL 5 MG TABLET PO PRN (11:42)
[2021-12-14 17:27] VITALS: BP 122/87
[2021-12-14] MEDS: IBUPROFEN 400 MG TABLET PO PRN (17:29)
[2021-12-14] MEDS: OLANZapine 10 MG TABLET PO SCH (20:18)
[2021-12-15] MEDS: AmLODIPine BESYLATE 5 MG TABLET PO SCH (08:18)
[2021-12-15] MEDS: FLUoxetine HCL 20 MG CAPSULE PO SCH (08:18)
[2021-12-15] MEDS: HALOPERIDOL 5 MG TABLET PO PRN ×2 (08:21→17:46)
[2021-12-15 08:49] VITALS: BP 155/85
[2021-12-15 16:19] VITALS: BP 116/66
[2021-12-15] MEDS: OLANZapine 10 MG TABLET PO SCH (20:13)
[2021-12-16 08:45] VITALS: BP 138/85
[2021-12-16] MEDS: AmLODIPine BESYLATE 5 MG TABLET PO SCH (08:51)
[2021-12-16] MEDS: FLUoxetine HCL 20 MG CAPSULE PO SCH (08:51)
[2021-12-16] MEDS: HALOPERIDOL 5 MG TABLET PO PRN ×2 (08:53→17:29)
[2021-12-16 16:00] VITALS: BP 113/66
[2021-12-16 16:15] VITALS: BP 113/66
[2021-12-16] MEDS: OLANZapine 10 MG TABLET PO SCH (20:27)
[2021-12-17 08:11] VITALS: BP 154/93
[2021-12-17] MEDS: FLUoxetine HCL 20 MG CAPSULE PO SCH (10:18)
[2021-12-17] MEDS: AmLODIPine BESYLATE 5 MG TABLET PO SCH (10:18)
[2021-12-17 16:07] VITALS: BP 113/80
[2021-12-17] MEDS: OLANZapine 10 MG TABLET PO SCH (21:11)
[2021-12-18] MEDS: AmLODIPine BESYLATE 5 MG TABLET PO SCH (08:30)
[2021-12-18] MEDS: HALOPERIDOL 5 MG TABLET PO PRN ×2 (08:30→18:12)
[2021-12-18] MEDS: FLUoxetine HCL 20 MG CAPSULE PO SCH (08:30)
[2021-12-18 09:00] VITALS: BP 156/92
[2021-12-18 16:10] VITALS: BP 150/83
[2021-12-18] MEDS: RisperiDONE 1 MG TABLET PO SCH (17:06)
[2021-12-18] MEDS: LORazepam 2 MG TABLET PO PRN (18:12)
[2021-12-18] MEDS: OLANZapine 10 MG TABLET PO SCH (20:49)
[2021-12-19] MEDS: HALOPERIDOL 5 MG TABLET PO PRN (02:06)
[2021-12-19 04:31] LABS: COVID AG,FIA SOURCE NASAL SWAB
[2021-12-19] MEDS: LORazepam 2 MG TABLET PO PRN (09:24)
[2021-12-19] MEDS: FLUoxetine HCL 20 MG CAPSULE PO SCH (09:24)
[2021-12-19] MEDS: RisperiDONE 1 MG TABLET PO SCH ×2 (09:24→17:42)
[2021-12-19] MEDS: AmLODIPine BESYLATE 5 MG TABLET PO SCH (09:24)
[2021-12-19 16:19] VITALS: BP 122/75
[2021-12-19] MEDS: OLANZapine 10 MG TABLET PO SCH (21:02)
[2021-12-20] MEDS: FLUoxetine HCL 20 MG CAPSULE PO SCH (07:46)
[2021-12-20] MEDS: AmLODIPine BESYLATE 5 MG TABLET PO SCH (07:46)
[2021-12-20] MEDS: LORazepam 2 MG TABLET PO PRN ×3 (07:46→20:20)
[2021-12-20] MEDS: RisperiDONE 1 MG TABLET PO SCH ×2 (07:46→17:20)
[2021-12-20 08:47] VITALS: BP 161/82
[2021-12-20] MEDS: HALOPERIDOL 5 MG TABLET PO PRN ×2 (15:40→20:20)
[2021-12-20 16:08] VITALS: BP 171/98
[2021-12-20] MEDS: OLANZapine 10 MG TABLET PO SCH (20:20)
[2021-12-21] MEDS: AmLODIPine BESYLATE 5 MG TABLET PO SCH (08:44)
[2021-12-21] MEDS: RisperiDONE 1 MG TABLET PO SCH ×2 (08:44→16:06)
[2021-12-21] MEDS: FLUoxetine HCL 20 MG CAPSULE PO SCH (08:44)
[2021-12-21 10:39] VITALS: BP 142/78
[2021-12-21] MEDS: HALOPERIDOL 5 MG TABLET PO PRN (16:08)
[2021-12-21 16:36] VITALS: BP 147/84
[2021-12-21] MEDS: OLANZapine 10 MG TABLET PO SCH (20:16)
[2021-12-22] MEDS: HALOPERIDOL 5 MG TABLET PO PRN ×4 (00:05→21:35)
[2021-12-22] MEDS: ZOLPIDEM TARTRATE 10 MG TABLET PO PRN ×2 (00:05→21:35)
[2021-12-22 08:59] VITALS: BP 110/59
[2021-12-22] MEDS: FLUoxetine HCL 20 MG CAPSULE PO SCH (10:12)
[2021-12-22] MEDS: LORazepam 2 MG TABLET PO PRN (10:12)
[2021-12-22] MEDS: AmLODIPine BESYLATE 5 MG TABLET PO SCH (10:12)
[2021-12-22] MEDS: RisperiDONE 1 MG TABLET PO SCH ×2 (10:12→17:23)
[2021-12-22 16:10] VITALS: BP 104/72
[2021-12-22] MEDS: OLANZapine 10 MG TABLET PO SCH (20:07)
[2021-12-23] MEDS: HALOPERIDOL 5 MG TABLET PO PRN ×4 (05:07→21:16)
[2021-12-23] MEDS: LORazepam 2 MG TABLET PO PRN ×4 (05:07→21:16)
[2021-12-23 08:33] VITALS: BP 138/79
[2021-12-23] MEDS: AmLODIPine BESYLATE 5 MG TABLET PO SCH (09:15)
[2021-12-23] MEDS: RisperiDONE 1 MG TABLET PO SCH ×2 (09:15→17:07)
[2021-12-23] MEDS: FLUoxetine HCL 20 MG CAPSULE PO SCH (09:15)
[2021-12-23 16:33] VITALS: BP 136/84
[2021-12-23] MEDS: OLANZapine 10 MG TABLET PO SCH (20:32)
[2021-12-23] MEDS: ZOLPIDEM TARTRATE 10 MG TABLET PO PRN (23:55)
[2021-12-24 08:00] VITALS: BP 151/89
[2021-12-24] MEDS: RisperiDONE 1 MG TABLET PO SCH ×2 (09:06→16:19)
[2021-12-24] MEDS: LORazepam 2 MG TABLET PO PRN ×2 (09:06→16:19)
[2021-12-24] MEDS: FLUoxetine HCL 20 MG CAPSULE PO SCH (09:06)
[2021-12-24] MEDS: AmLODIPine BESYLATE 5 MG TABLET PO SCH (09:06)
[2021-12-24 16:00] VITALS: BP 101/55
[2021-12-24] MEDS: OLANZapine 10 MG TABLET PO SCH (20:19)
[2021-12-25] MEDS: HALOPERIDOL 5 MG TABLET PO PRN ×4 (00:07→21:53)
[2021-12-25] MEDS: ZOLPIDEM TARTRATE 10 MG TABLET PO PRN (00:07)
[2021-12-25] MEDS: LORazepam 2 MG TABLET PO PRN ×3 (06:33→21:53)
[2021-12-25] MEDS: RisperiDONE 1 MG TABLET PO SCH ×2 (08:06→16:01)
[2021-12-25] MEDS: AmLODIPine BESYLATE 5 MG TABLET PO SCH (08:06)
[2021-12-25] MEDS: FLUoxetine HCL 20 MG CAPSULE PO SCH (08:06)
[2021-12-25 08:12] VITALS: BP 142/88
[2021-12-25 16:08] VITALS: BP 140/86
[2021-12-25] MEDS: OLANZapine 10 MG TABLET PO SCH (20:37)
[2021-12-26 04:47] LABS: COVID AG,FIA SOURCE NASAL SWAB
[2021-12-26 08:17] VITALS: BP 143/82
[2021-12-26] MEDS: LORazepam 2 MG TABLET PO PRN (09:24)
[2021-12-26] MEDS: AmLODIPine BESYLATE 5 MG TABLET PO SCH (09:24)
[2021-12-26] MEDS: FLUoxetine HCL 20 MG CAPSULE PO SCH (09:24)
[2021-12-26] MEDS: HALOPERIDOL 5 MG TABLET PO PRN (09:24)
[2021-12-26] MEDS: RisperiDONE 1 MG TABLET PO SCH ×2 (09:24→18:05)
[2021-12-26 16:13] VITALS: BP 131/81
[2021-12-26] MEDS: OLANZapine 10 MG TABLET PO SCH (20:43)
[2021-12-27] MEDS: HALOPERIDOL 5 MG TABLET PO PRN (08:17)
[2021-12-27] MEDS: RisperiDONE 1 MG TABLET PO SCH ×2 (08:17→16:32)
[2021-12-27] MEDS: FLUoxetine HCL 20 MG CAPSULE PO SCH (08:17)
[2021-12-27] MEDS: LORazepam 2 MG TABLET PO PRN (08:17)
[2021-12-27] MEDS: AmLODIPine BESYLATE 5 MG TABLET PO SCH (08:17)
[2021-12-27 08:38] VITALS: BP 140/78
[2021-12-27 16:12] VITALS: BP 143/84
[2021-12-27] MEDS: OLANZapine 10 MG TABLET PO SCH (20:24)
[2021-12-28] MEDS: HALOPERIDOL 5 MG TABLET PO PRN ×4 (02:44→20:00)
[2021-12-28] MEDS: ZOLPIDEM TARTRATE 10 MG TABLET PO PRN (02:44)
[2021-12-28] MEDS: AmLODIPine BESYLATE 5 MG TABLET PO SCH (08:27)
[2021-12-28] MEDS: FLUoxetine HCL 20 MG CAPSULE PO SCH (08:27)
[2021-12-28] MEDS: RisperiDONE 1 MG TABLET PO SCH ×2 (08:28→15:59)
[2021-12-28 09:56] VITALS: BP 125/69
[2021-12-28 16:56] VITALS: BP 103/61
[2021-12-28] MEDS: OLANZapine 10 MG TABLET PO SCH (20:35)
[2021-12-29] MEDS: RisperiDONE 1 MG TABLET PO SCH ×2 (08:15→17:12)
[2021-12-29] MEDS: AmLODIPine BESYLATE 5 MG TABLET PO SCH (08:15)
[2021-12-29] MEDS: FLUoxetine HCL 20 MG CAPSULE PO SCH (08:15)
[2021-12-29] MEDS: HALOPERIDOL 5 MG TABLET PO PRN ×2 (08:19→15:54)
[2021-12-29 08:49] VITALS: BP 124/70
[2021-12-29 16:07] VITALS: BP 131/86
[2021-12-29 19:40] VITALS: BP 141/84
[2021-12-29] MEDS: IBUPROFEN 400 MG TABLET PO PRN (19:40)
[2021-12-29] MEDS: OLANZapine 10 MG TABLET PO SCH (20:44)
[2021-12-29] MEDS: ZOLPIDEM TARTRATE 10 MG TABLET PO PRN (20:44)
[2021-12-30 07:03] LABS: BASOPHILS % (AUTO) 0.5 % (0.0-2.0); EOSINOPHILS % (AUTO) 2.9 % (1.0-6.0); HEMATOCRIT 47.7 % (41-53); HEMOGLOBIN 15.8 g/dL (13.5-17.5); LYMPHOCYTES # (AUTO) 2.2 K/uL (1.0-4.8); LYMPHOCYTES % (AUTO) 35.9 % (22.0-44.0); MEAN CORPUSCULAR HEMOGLOBIN 29.6 pg (26.0-34.0); MEAN CORPUSCULAR HGB CONC 33.1 G/dL (31.0-37.0); MEAN CORPUSCULAR VOLUME 89 fL (80-100); MONOCYTES # (AUTO) 0.5 K/uL (0.1-1.0); MONOCYTES % (AUTO) 8.8 % (2.0-9.0); NEUTROPHILS # (AUTO) 3.2 K/uL (1.8-7.7); NEUTROPHILS % (AUTO) 51.9 % (40.0-70.0); PLATELET COUNT (AUTO) 208 K/uL (150-450); RED BLOOD CELL COUNT(AUTO) 5.34 MIL/uL (4.50-5.90); RED CELL DISTRIBUTION WIDTH 14.5 % (11.5-14.5)
[2021-12-30] MEDS: AmLODIPine BESYLATE 5 MG TABLET PO SCH ×2 (08:40→08:42)
[2021-12-30] MEDS: FLUoxetine HCL 20 MG CAPSULE PO SCH (08:40)
[2021-12-30] MEDS: RisperiDONE 1 MG TABLET PO SCH ×2 (08:40→16:15)
[2021-12-30 15:28] VITALS: BP 132/89
[2021-12-30] MEDS: IBUPROFEN 400 MG TABLET PO PRN (15:28)
[2021-12-30 16:14] VITALS: BP 132/89
[2021-12-30] MEDS: HALOPERIDOL 5 MG TABLET PO PRN (18:51)
[2021-12-30] MEDS: OLANZapine 10 MG TABLET PO SCH (21:33)
[2021-12-31 08:19] VITALS: BP 108/61
[2021-12-31] MEDS: AmLODIPine BESYLATE 5 MG TABLET PO SCH (08:24)
[2021-12-31] MEDS: RisperiDONE 1 MG TABLET PO SCH ×2 (08:25→18:05)
[2021-12-31] MEDS: FLUoxetine HCL 20 MG CAPSULE PO SCH (08:25)
[2021-12-31 16:52] VITALS: BP 106/65
[2021-12-31] MEDS: OLANZapine 10 MG TABLET PO SCH (20:35)
[2022-01-01 08:39] VITALS: BP 154/93
[2022-01-01] MEDS: RisperiDONE 1 MG TABLET PO SCH ×2 (09:25→18:08)
[2022-01-01] MEDS: FLUoxetine HCL 20 MG CAPSULE PO SCH (09:25)
[2022-01-01] MEDS: AmLODIPine BESYLATE 5 MG TABLET PO SCH (09:25)
[2022-01-01 16:09] VITALS: BP 142/69
[2022-01-01] MEDS: OLANZapine 10 MG TABLET PO SCH (21:15)
[2022-01-02 07:14] LABS: COVID AG,FIA SOURCE NASAL SWAB
[2022-01-02 08:00] VITALS: BP 109/60
[2022-01-02] MEDS: RisperiDONE 1 MG TABLET PO SCH ×2 (09:51→17:57)
[2022-01-02] MEDS: AmLODIPine BESYLATE 5 MG TABLET PO SCH (09:51)
[2022-01-02] MEDS: FLUoxetine HCL 20 MG CAPSULE PO SCH (09:51)
[2022-01-02] MEDS: IBUPROFEN 400 MG TABLET PO PRN (12:51)
[2022-01-02 16:16] VITALS: BP 111/66
[2022-01-02] MEDS: OLANZapine 10 MG TABLET PO SCH (20:38)
[2022-01-03 08:30] VITALS: BP 122/76
[2022-01-03] MEDS: FLUoxetine HCL 20 MG CAPSULE PO SCH (08:39)
[2022-01-03] MEDS: RisperiDONE 1 MG TABLET PO SCH (08:39)
[2022-01-03] MEDS: AmLODIPine BESYLATE 5 MG TABLET PO SCH (08:39)
[2022-01-03 15:13] VITALS: BP 108/70
[2022-01-03] MEDS: IBUPROFEN 400 MG TABLET PO PRN (15:16)
[2022-01-03 16:00] VITALS: BP 105/69
[2022-01-03 16:18] VITALS: BP 105/69
[2022-01-03] MEDS: RisperiDONE 2 MG TABLET PO SCH (16:35)
[2022-01-03] MEDS: LORazepam 2 MG TABLET PO PRN (20:19)
[2022-01-03] MEDS: HALOPERIDOL 5 MG TABLET PO PRN (20:19)
[2022-01-03] MEDS: OLANZapine 10 MG TABLET PO SCH (21:32)
[2022-01-04] MEDS: RisperiDONE 2 MG TABLET PO SCH ×2 (09:31→16:37)
[2022-01-04] MEDS: FLUoxetine HCL 20 MG CAPSULE PO SCH (09:31)
[2022-01-04] MEDS: AmLODIPine BESYLATE 5 MG TABLET PO SCH (09:31)
[2022-01-04 10:11] VITALS: BP 106/63
[2022-01-04] MEDS: IBUPROFEN 400 MG TABLET PO PRN (16:54)
[2022-01-04 17:54] VITALS: BP 112/68
[2022-01-04] MEDS ORDERED: HydrOXYzine PAMOATE 50 MG CAPSULE PO PRN (19:00)
[2022-01-04] MEDS ORDERED: TraZODone HCL 50 MG TABLET PO PRN (19:00)
[2022-01-04] MEDS: OLANZapine 10 MG TABLET PO SCH (20:22)
[2022-01-05 08:00] VITALS: BP 119/62
[2022-01-05] MEDS: FLUoxetine HCL 20 MG CAPSULE PO SCH (08:19)
[2022-01-05] MEDS: RisperiDONE 2 MG TABLET PO SCH ×2 (08:19→17:30)
[2022-01-05] MEDS: AmLODIPine BESYLATE 5 MG TABLET PO SCH (08:19)
[2022-01-05 10:01] LABS: COVID AG,FIA SOURCE NASOPHARYNGEAL
[2022-01-05 12:39] VITALS: BP 118/68
[2022-01-05 15:14] VITALS: BP 120/76
[2022-01-05] MEDS: IBUPROFEN 400 MG TABLET PO PRN (15:14)
[2022-01-05 16:14] VITALS: BP 124/82
[2022-01-05 16:34] VITALS: BP 122/77
[2022-01-05] MEDS: HALOPERIDOL 5 MG TABLET PO PRN (18:02)
[2022-01-05] MEDS: OLANZapine 10 MG TABLET PO SCH (20:16)
[2022-01-06] MEDS: AmLODIPine BESYLATE 5 MG TABLET PO SCH (09:21)
[2022-01-06] MEDS: FLUoxetine HCL 20 MG CAPSULE PO SCH (09:22)
[2022-01-06] MEDS: RisperiDONE 2 MG TABLET PO SCH ×2 (09:22→16:01)
[2022-01-06 10:14] VITALS: BP 108/67
[2022-01-06] MEDS: IBUPROFEN 400 MG TABLET PO PRN (10:56)
[2022-01-06 16:02] VITALS: BP 112/64
[2022-01-06] MEDS: HALOPERIDOL 5 MG TABLET PO PRN (20:44)
[2022-01-06] MEDS: OLANZapine 10 MG TABLET PO SCH (20:44)
[2022-01-07 08:07] VITALS: BP 118/73
[2022-01-07] MEDS: RisperiDONE 2 MG TABLET PO SCH ×2 (08:12→16:47)
[2022-01-07] MEDS: AmLODIPine BESYLATE 5 MG TABLET PO SCH (08:12)
[2022-01-07] MEDS: FLUoxetine HCL 20 MG CAPSULE PO SCH (08:12)
[2022-01-07 16:08] VITALS: BP 94/60
[2022-01-07] MEDS: OLANZapine 10 MG TABLET PO SCH (21:05)
[2022-01-08 08:00] VITALS: BP 119/74
[2022-01-08] MEDS: AmLODIPine BESYLATE 5 MG TABLET PO SCH (08:11)
[2022-01-08] MEDS: FLUoxetine HCL 20 MG CAPSULE PO SCH (08:11)
[2022-01-08] MEDS: RisperiDONE 2 MG TABLET PO SCH ×2 (08:11→16:49)
[2022-01-08 15:49] VITALS: BP 150/74
[2022-01-08] MEDS: IBUPROFEN 400 MG TABLET PO PRN (15:54)
[2022-01-08] MEDS: OLANZapine 10 MG TABLET PO SCH (20:09)
[2022-01-09 08:00] VITALS: BP 104/64
[2022-01-09] MEDS: RisperiDONE 2 MG TABLET PO SCH ×2 (10:28→18:17)
[2022-01-09] MEDS: AmLODIPine BESYLATE 5 MG TABLET PO SCH (10:28)
[2022-01-09] MEDS: FLUoxetine HCL 20 MG CAPSULE PO SCH (10:34)
[2022-01-09] MEDS: IBUPROFEN 400 MG TABLET PO PRN (13:44)
[2022-01-09 16:08] VITALS: BP 118/70
[2022-01-09] MEDS: OLANZapine 10 MG TABLET PO SCH (20:26)
[2022-01-10] MEDS: AmLODIPine BESYLATE 5 MG TABLET PO SCH (08:28)
[2022-01-10] MEDS: RisperiDONE 2 MG TABLET PO SCH (08:28)
[2022-01-10] MEDS: FLUoxetine HCL 20 MG CAPSULE PO SCH (08:28)
[2022-01-10 08:39] VITALS: BP 117/59
[2022-01-10] MEDS ORDERED: OLAN10 PO (10:34)
[2022-01-10] MEDS ORDERED: RISP2TAB86 PO (10:34)
[2022-01-10] MEDS ORDERED: PROZ20 PO (10:34)
[2022-01-10] MEDS ORDERED: TRAZ-252 PO (10:34)
[2022-01-10] MEDS ORDERED: AMLO-257 PO (10:52)
[2022-01-10] MEDS: IBUPROFEN 400 MG TABLET PO PRN (11:22)
[2022-01-10 11:23] VITALS: BP 118/74
== END 2022-01-10 14:30 | disposition home or self-care (01) | DRG 750 ==
LOC: EMS 23:19 → 3EC 12-13 15:02 → 3EI 12-31 10:45
PROVIDERS: ADMIT Psychiatry & Neurology Child & Adolescent Psychiatry; ATTEND Psychiatry & Neurology Child & Adolescent Psychiatry
DX: F25.1 Schizoaffective disorder, depressive type (principal); R45.851 Suicidal ideations; R45.850 Homicidal ideations; M50.30 Other cervical disc degeneration, unspecified cervical region; J44.9 Chronic obstructive pulmonary disease, unspecified; I10 Essential (primary) hypertension; F43.10 Post-traumatic stress disorder, unspecified; E66.9 Obesity, unspecified; D64.9 Anemia, unspecified; R73.9 Hyperglycemia, unspecified; F15.10 Other stimulant abuse, uncomplicated; Z20.822 Contact with and (suspected) exposure to COVID-19; Z86.73 Personal history of transient ischemic attack (TIA), and cerebral infarction without residual deficits; Z87.891 Personal history of nicotine dependence; Z98.1 Arthrodesis status
CPT/HCPCS: 80053; 81001; 82962; 83036; 85025; 87086; 99285; G0480

== ENCOUNTER 2022-05-08 03:28 | Emergency (ER) | payer MEDICAID, OTHER ==
[~2022-05-08] VITALS: Ht 167.6 cm; Wt 102.3 kg
[~2022-05-08 03:28] MED LIST changes: -ASPI-1444 PO; -FLUO-191 PO; -MULT-723 PO; -NALT50TA PO; +OLAN10 PO; -OLAN10TA22 PO; -PRED20 PO; +PROZ20 PO; +RISP2TAB86 PO; +TRAZ-252 PO
[2022-05-08 04:14] VITALS: BP 123/62
[2022-05-08 04:28] LABS: GLUCOSE,POINT OF CARE 131 MG/DL (70-110)
== END 2022-05-08 05:51 | disposition left against medical advice (07) ==
LOC: EMS 03:30
DX: R10.9 Unspecified abdominal pain (principal); Z53.21 Procedure and treatment not carried out due to patient leaving prior to being seen by health care provider
CPT/HCPCS: 82962

== ENCOUNTER 2022-05-29 00:40 | Emergency (ER) | payer OTHER ==
[~2022-05-29] VITALS: Ht 180.3 cm; Wt 100.0 kg
[2022-05-29 01:04] VITALS: BP 124/72
[2022-05-29 01:11] LABS: GLUCOMETER DEV NAME(LOC) ERT.5; GLUCOSE,POINT OF CARE 169 MG/DL (70-110)
== END 2022-05-29 01:44 | disposition left against medical advice (07) ==
LOC: EMS 00:42
DX: R06.02 Shortness of breath (principal); J45.909 Unspecified asthma, uncomplicated; I10 Essential (primary) hypertension; F20.9 Schizophrenia, unspecified; F17.210 Nicotine dependence, cigarettes, uncomplicated; F15.90 Other stimulant use, unspecified, uncomplicated; Z98.890 Other specified postprocedural states
CPT/HCPCS: 82962; 99283

== ENCOUNTER 2022-05-30 17:14 | Emergency (ER) | payer OTHER ==
[~2022-05-30] VITALS: Ht 177.8 cm; Wt 105.2 kg
[2022-05-30 17:45] VITALS: BP 102/52
[2022-05-30] MEDS ORDERED: GuaiFENesin/D-METHORPHAN [SUGAR-FREE] 200-20MG/10 ML SYRUP UDCUP PO ONE (18:15)
[2022-05-30] MEDS ORDERED: BENZONATATE 100 MG CAPSULE PO ONE (18:15)
[2022-05-30] MEDS ORDERED: LIDOCAINE 2% VISCOUS 15 ML SOLUTION UDCUP PO ONE (18:15)
[2022-05-30] MEDS ORDERED: ACETAMINOPHEN/CODEINE 300-30 MG TABLET PO ONE (18:15)
== END 2022-05-30 18:43 | disposition home or self-care (01) ==
LOC: EMS 17:20
DX: J06.9 Acute upper respiratory infection, unspecified (principal); K14.0 Glossitis; F25.9 Schizoaffective disorder, unspecified; J45.909 Unspecified asthma, uncomplicated; J44.9 Chronic obstructive pulmonary disease, unspecified; I10 Essential (primary) hypertension; F17.210 Nicotine dependence, cigarettes, uncomplicated; F15.90 Other stimulant use, unspecified, uncomplicated; Z98.890 Other specified postprocedural states
CPT/HCPCS: 99284; Z7502; Z7610

== ENCOUNTER 2022-06-01 01:00 | Emergency (ER) | payer OTHER ==
[~2022-06-01] VITALS: Ht 172.7 cm; Wt 105.2 kg
[2022-06-01 01:41] VITALS: BP 120/51
== END 2022-06-01 03:58 | disposition left against medical advice (07) ==
LOC: EMS 01:02
DX: J02.9 Acute pharyngitis, unspecified (principal); Z53.21 Procedure and treatment not carried out due to patient leaving prior to being seen by health care provider

== ENCOUNTER 2023-12-20 19:01 | Emergency (ER) | payer OTHER ==
[~2023-12-20] VITALS: Ht 177.8 cm; Wt 102.3 kg
[~2023-12-20 19:01] MED LIST changes: +RISP-32 PO; -RISP2TAB86 PO
[2023-12-20 19:04] VITALS: BP 136/73; PULSE 96; RESP 16; TEMP 98.7; O2SAT 97
[2023-12-20] MEDS ORDERED: LIDOCAINE 5% TRANSDERMAL PATCH TD ONE (23:15)
[2023-12-20] MEDS ORDERED: TraMADol HCL 50 MG TABLET PO ONE (23:15)
[2023-12-20] MEDS ORDERED: KETOROLAC TROMETHAMINE 30 MG/ML VIAL IM ONE (23:15)
[2023-12-20] MEDS ORDERED: CYCL-448 PO (23:29)
== END 2023-12-21 00:26 | disposition home or self-care (01) ==
LOC: EMS 19:01
DX: M54.50 Low back pain, unspecified (principal); J44.9 Chronic obstructive pulmonary disease, unspecified; I10 Essential (primary) hypertension; F20.9 Schizophrenia, unspecified; F17.210 Nicotine dependence, cigarettes, uncomplicated; F15.90 Other stimulant use, unspecified, uncomplicated; Z98.890 Other specified postprocedural states
CPT/HCPCS: 99283; Z7502